=== PATIENT | female | born 1975 | race Two or more races ===

== ENCOUNTER 2018-06-07 05:08 | Inpatient (IN) | payer OTHER ==
[~2018-06-07] VITALS: Ht 152.4 cm; Wt 60.9 kg
[~2018-06-07 05:08] MED LIST: IBUP200T49 PO; OXYC-302 PO
[2018-06-07] MEDS ORDERED: OXYTOCIN 30U/ 0.9% NaCL 500ML 500 ML IV ONE (05:11)
[2018-06-07] MEDS ORDERED: OXYTOCIN 30U/ 0.9% NaCL 500ML 500 ML IV PRN (05:11)
[2018-06-07 05:19] VITALS: BP 97/57
[2018-06-07] MEDS ORDERED: NEWBORN KIT ONE (05:21)
[2018-06-07] MEDS ORDERED: VALA500T4 PO (05:28)
[2018-06-07] MEDS ORDERED: CALCIUM CARBONATE 500 MG TAB.CHEW PO PRN ×2 (05:30→08:30)
[2018-06-07] MEDS ORDERED: ONDANSETRON 2MG/ML, 2ML IVPush PRN (05:30)
[2018-06-07] MEDS ORDERED: FENTANYL PF 100 MCG/2ML IVPush PRN (05:30)
[2018-06-07] MEDS ORDERED: FENTANYL PF 100 MCG/2ML IV PRN (05:30)
[2018-06-07 05:36] LABS: BASOPHILS # (AUTO) 0.02 x10^3/uL (0-0.1); BASOPHILS % (AUTO) 0 % (0-1); EOSINOPHILS # (AUTO) 0.12 x10^3/uL (0-0.4); EOSINOPHILS % (AUTO) 2 % (1-7); LYMPHOCYTES # (AUTO) 1.31 x10^3/uL (1-3.4); LYMPHOCYTES % (AUTO) 21 % (22-44); MD NO; MEAN CORPUSCULAR HEMOGLOBIN 32.2 pg (27.0-34.8); MEAN CORPUSCULAR HGB CONC 34.2 g/dL (32.4-35.8); MEAN CORPUSCULAR VOLUME 94.4 fL (80-100); MEAN PLATELET VOLUME 9.4 fL (7.4-10.4); MONOCYTES # (AUTO) 0.44 x10^3/uL (0.2-0.8); MONOCYTES % (AUTO) 7 % (2-9); NEUTROPHILS # (AUTO) 4.46 x10^3/uL (1.8-6.8); NEUTROPHILS % (AUTO) 70 % (42-75); PLATELET COUNT 214 x10^3/uL (130-400); RED BLOOD COUNT 3.65 x10^6/uL (3.82-5.3); RED CELL DISTRIBUTION WIDTH 13.9 % (9.6-15.2)
[2018-06-07] MEDS: LACTATED RINGERS 1,000 ML IV SCH ×4 (05:43→18:23)
[2018-06-07] MEDS ORDERED: OXYTOCIN 30U/ 0.9% NaCL 500ML 500 ML ONE (05:54)
[2018-06-07] MEDS ORDERED: BUPIVACAINE 0.25% ONE (08:11)
[2018-06-07] MEDS ORDERED: FENTANYL/BUPIV./NS/PF 250 ML EPIDCONT ONE (08:12)
[2018-06-07] MEDS ORDERED: RHOGAM FROM BLOOD BANK 1 NOTE EA IM/IV ONE (08:30)
[2018-06-07] MEDS ORDERED: DIPH,PERTUSS(ACELL),TET VAC/PF NC IM-VACC PRN (08:30)
[2018-06-07] MEDS ORDERED: MAGNESIUM HYDROXIDE 8%, 30ML UDC PO PRN (08:30)
[2018-06-07] MEDS ORDERED: MEASLES,MUMPS&RUBELLA VACC/PF 0.5 ML SQ-VACC PRN (08:30)
[2018-06-07] MEDS ORDERED: ONDANSETRON 2MG/ML, 2ML IV PRN (08:30)
[2018-06-07] MEDS ORDERED: MISOPROSTOL 200 MCG TABLET PO PRN (08:30)
[2018-06-07] MEDS ORDERED: ACETAMINOPHEN 325 MG TABLET PO PRN ×2 (08:30)
[2018-06-07] MEDS ORDERED: OXYcodone/APAP 5/325MG TABLET PO PRN (08:30)
[2018-06-07] MEDS ORDERED: DOCUSATE 100 MG CAPSULE PO PRN (08:30)
[2018-06-07] MEDS ORDERED: FENTANYL/BUPIV./NS/PF 250 ML EPIDCONT SCH (08:40)
[2018-06-07] MEDS ORDERED: NALOXONE 0.4 MG/ML, 1ML IVPush PRN (09:00)
[2018-06-07] MEDS ORDERED: LACTATED RINGERS 1,000 ML IVBOLUS PRN (09:00)
[2018-06-07] MEDS ORDERED: EPHEDRINE 50 MG/ML, 1ML IVPush PRN (09:00)
[2018-06-07] MEDS ORDERED: MISOPROSTOL 200 MCG TABLET ONE (11:48)
[2018-06-07] MEDS ORDERED: LIDOCAINE/PF 1%, 30ML ONE (11:48)
[2018-06-07] MEDS ORDERED: IBUPROFEN 600 MG TABLET ONE (13:36)
[2018-06-07] MEDS: IBUPROFEN 600 MG TABLET PO PRN ×2 (14:46→20:46)
[2018-06-07 16:30] VITALS: BP 100/61
[2018-06-07] MEDS: PRENATAL VIT/IRON/FA 1 EACH TABLET PO SCH (18:23)
[2018-06-07] MEDS: OXYTOCIN 30U/ 0.9% NaCL 500ML 500 ML IV SCH ×2 (18:23→18:24)
[2018-06-07 19:55] VITALS: BP 93/59
[2018-06-07] MEDS: VALACYCLOVIR 500MG TABLET PO SCH (20:46)
[2018-06-07 21:17] LABS: BASOPHILS # (AUTO) 0.03 x10^3/uL (0-0.1); BASOPHILS % (AUTO) 0 % (0-1); EOSINOPHILS % (AUTO) 1 % (1-7); LYMPHOCYTES # (AUTO) 1.15 x10^3/uL (1-3.4); LYMPHOCYTES % (AUTO) 12 % (22-44); MD NO; MEAN CORPUSCULAR HEMOGLOBIN 32.2 pg (27.0-34.8); MEAN CORPUSCULAR HGB CONC 33.7 g/dL (32.4-35.8); MEAN CORPUSCULAR VOLUME 95.6 fL (80-100); MEAN PLATELET VOLUME 9.1 fL (7.4-10.4); MONOCYTES % (AUTO) 6 % (2-9); NEUTROPHILS # (AUTO) 7.68 x10^3/uL (1.8-6.8); NEUTROPHILS % (AUTO) 80 % (42-75); PLATELET COUNT 189 x10^3/uL (130-400); RED BLOOD COUNT 3.61 x10^6/uL (3.82-5.3); RED CELL DISTRIBUTION WIDTH 13.7 % (9.6-15.2)
[2018-06-07 23:30] VITALS: BP 98/56
[2018-06-08] MEDS: OXYcodone/APAP 5/325MG TABLET PO PRN ×3 (01:58→10:31)
[2018-06-08] MEDS: IBUPROFEN 600 MG TABLET PO PRN ×3 (02:27→20:41)
[2018-06-08 03:30] VITALS: BP 93/59
[2018-06-08] MEDS: OXYTOCIN 30U/ 0.9% NaCL 500ML 500 ML IV SCH ×2 (04:20→14:20)
[2018-06-08 08:30] VITALS: BP 94/60
[2018-06-08] MEDS: PRENATAL VIT/IRON/FA 1 EACH TABLET PO SCH (09:00)
[2018-06-08 20:15] VITALS: BP 102/64
[2018-06-08] MEDS: VALACYCLOVIR 500MG TABLET PO SCH (20:42)
[2018-06-09 08:15] VITALS: BP 101/67
[2018-06-09] MEDS: PRENATAL VIT/IRON/FA 1 EACH TABLET PO SCH (08:58)
[2018-06-09] MEDS ORDERED: IBUP-1222 PO (09:24)
== END 2018-06-09 11:47 | disposition home or self-care (01) | DRG 775 ==
LOC: LDIP 05:08 → 2NW 15:24
PROVIDERS: ADMIT Obstetrics & Gynecology; ATTEND Obstetrics & Gynecology
PROC: 10E0XZZ Delivery of Products of Conception, External Approach (ICD-10-PCS; principal; 2018-06-07)
PROC: 3E0R3BZ Introduction of Anesthetic Agent into Spinal Canal, Percutaneous Approach (ICD-10-PCS; 2018-06-07)
PROC: 00HU33Z Insertion of Infusion Device into Spinal Canal, Percutaneous Approach (ICD-10-PCS; 2018-06-07)
PROC: 10907ZC Drainage of Amniotic Fluid, Therapeutic from Products of Conception, Via Natural or Artificial Opening (ICD-10-PCS; 2018-06-07)
PROC: 3E033VJ Introduction of Other Hormone into Peripheral Vein, Percutaneous Approach (ICD-10-PCS; 2018-06-07)
DX: O69.81X0 Labor and delivery complicated by cord around neck, without compression, not applicable or unspecified (principal); Z37.0 Single live birth; Z3A.39 39 weeks gestation of pregnancy
CPT/HCPCS: 36415; 85025; 86787; 86850; 86900; J2590; J7120